=== PATIENT | female | born 1990 | race Caucasian/White ===

== ENCOUNTER 2016-07-22 00:10 | Emergency (ER) | payer OTHER ==
[~2016-07-22] VITALS: Ht 167.6 cm; Wt 51.1 kg
[2016-07-22 00:14] VITALS: TEMP 37; Ht 167.6 cm; Wt 51.1 kg
[2016-07-22 00:38] VITALS: O2SAT 100
[2016-07-22 01:00] LABS: BASO % 0.6 %; BASO ABS # 0.07 K/uL (0-0.2); COMPLETE YES; EOS % 1.8 %; HEMATOCRIT 39.7 % (37-47); IG% 0.3 %; LYMPH % 20.9 %; MEAN CELL VOLUME 89.2 fL (80-100); MEAN CORPUSCULAR HEMOGLOBIN 30.8 pg (25-34); MEAN CORPUSCULAR HGB CONC 34.5 g/dl (32-36); MEAN PLATELET VOLUME 10.3 fL (7.4-10.4); MONO % 7.9 %; NEUT % 68.5 %; PLATELET COUNT 272 K/uL (130-400); RED BLOOD COUNT 4.45 M/uL (4.2-5.4); WHITE BLOOD COUNT 11.46 K/uL (4.8-10.8)
[2016-07-22] MEDS ORDERED: ZINC1CAP PO (01:09)
[2016-07-22] MEDS ORDERED: VITACAP26 PO (01:10)
[2016-07-22 01:16] LABS: BLOOD UREA NITROGEN 5 mg/dl (7-18); CREATININE 0.56 mg/dl (0.60-1.20); GLUCOSE 120 mg/dl (70-99)
[2016-07-22 01:17] LABS: BUN/CREATININE RATIO 8.1 (10-20); CALCIUM 8.5 mg/dl (8.5-10.1); CARBON DIOXIDE 26 mmol/L (21-32); CHLORIDE 105 mmol/L (98-107); POTASSIUM 3.2 mmol/L (3.5-5.1); SODIUM 142 mmol/L (136-145)
[2016-07-22] MEDS ORDERED: POTASSIUM CHLORIDE 10 MEQ TABCR PO STA (03:27)
[2016-07-22 04:11] VITALS: BP 98/58; PULSE 87; O2SAT 96
--- NOTE | 2016-07-22 04:19 | EMERGENCY ROOM VISIT NOTE ---
History Report prepared by Jennifer: Constantino Rodriguez Under the Supervision of: Dr. Mckenzie Cruz D.O. First contact with patient: 00:21 Chief Complaint: RAPID HEART RATE Stated Complaint: LIGHTEADED,HEART PALPATATIONS,TREMORS,MILD SOB Nursing Triage Summary: Patient reports feeling "lightheaded/dizzy", nausea, palpitations, tremors & SOB. Has been having episodes with these sx for the past week- becoming more frequent over time. Tonight she reports "the palpatations were stronger & the tremors weren't going away." Also reports "difficulty concentrating". Patient appears very anxious while lying on stretcher. Noted to have flat affect & does not make eye contact. Visitor at bedside. History of Present Illness The patient is a 26 year old female who presents to the Emergency Room with complaints of worsening heart palpitations that the patient has been experiencing for the past week. The patient states that her palpitations have been worsening significantly over the past three days. She has also been experiencing dizziness, fatigue, and nausea. She has not taken any medications to remedy her symptoms. She is not on control. 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 A total of 10 systems reviewed and were otherwise negative. Past Medical & Surgical Patient reports no past medical/surgical histories Family History Heart disease Social History Smoking Status: Never Smoker Smokeless Tobacco Use: No Drug Use: none Housing Status: lives with family Occupation Status: employed Current/Historical Medications Scheduled Vitamins C & E (Vitamin C), 1 CAP PO DAILY Zinc Sulfate (Zinc Sulfate), Unknown Dose PO DIRECTED Allergies Coded Allergies: No Known Allergies (Unverified , 07/22/16) Physical Exam Vital Signs Date Time Temp Pulse Resp B/P Pulse Ox O2 Delivery O2 Flow Rate FiO2 07/22/16 04:11 87 20 98/58 96 07/22/16 02:46 95 16 100/62 Room Air 07/22/16 01:35 88 16 108/61 100 105 116/65 100 107/77 07/22/16 00:38 100 Room Air 07/22/16 00:30 97 Room Air 07/22/16 00:28 112 07/22/16 00:14 37.0 122 20 120/70 98 Room Air Physical Exam General: Patient seems slightly anxious on exam. Slightly emaciated. HEENT: Head - normocephalic and atraumatic Pupils are equal, round, and reactive to light. Extraocular eye muscles are intact, and sclera are anicteric. Nose - moist nasal mucosa without discharge. Mouth - moist buccal mucosa. Oropharynx is nonerythematous and there is no tonsillar exudate or edema noted. Neck: Supple; no JVD, nuchal rigidity, cervical lymphadenopathy, or auscultated bruits. Heart: Tachycardiac rate with normal rhythm. There is a normal S1 and S2 with no murmurs, clicks, or gallops appreciated. Lungs: Clear to auscultation bilaterally with no wheezes, rales, or rhonchi. Abdomen: Soft, completely nontender, nondistended, with good bowel sounds. There are no palpable pulsatile masses or hepatosplenomegaly. There is no guarding, rigidity, or rebound noted. Extremities: No evidence of cyanosis, clubbing, or edema. There are easily palpable peripheral pulses. Skin: Pale warm and dry with good turgor and no rashes. Medical Decision & Procedures ER Provider Diagnostic Interpretation: X-ray results as stated below per interpretation by me: CHEST X-RAY: Narrow mediastinum, no cardiomegaly, no pulmonary pathology Laboratory Results 07/22/16 00:38 Red Blood Count 4.45, Mean Corpuscular Volume 89.2, Mean Corpuscular Hemoglobin 30.8, Mean Corpuscular Hemoglobin Concent 34.5, Mean Platelet Volume 10.3, Neutrophils (%) (Auto) 68.5, Lymphocytes (%) (Auto) 20.9, Monocytes (%) (Auto) 7.9, Eosinophils (%) (Auto) 1.8, Basophils (%) (Auto) 0.6, Neutrophils # (Auto) 7.84, Lymphocytes # (Auto) 2.40, Monocytes # (Auto) 0.91, Eosinophils # (Auto) 0.21, Basophils # (Auto) 0.07 07/22/16 00:38 Test 07/22/16 00:38 07/22/16 03:11 White Blood Count 11.46 K/uL (4.8-10.8) Red Blood Count 4.45 M/uL (4.2-5.4) Hemoglobin 13.7 g/dL (12.0-16.0) Hematocrit 39.7 % (37-47) Mean Corpuscular Volume 89.2 fL (80-100) Mean Corpuscular Hemoglobin 30.8 pg (25-34) Mean Corpuscular Hemoglobin Concent 34.5 g/dl (32-36) Platelet Count 272 K/uL (130-400) Mean Platelet Volume 10.3 fL (7.4-10.4) Neutrophils (%) (Auto) 68.5 % Lymphocytes (%) (Auto) 20.9 % Monocytes (%) (Auto) 7.9 % Eosinophils (%) (Auto) 1.8 % Basophils (%) (Auto) 0.6 % Neutrophils # (Auto) 7.84 K/uL (1.4-6.5) Lymphocytes # (Auto) 2.40 K/uL (1.2-3.4) Monocytes # (Auto) 0.91 K/uL (0.11-0.59) Eosinophils # (Auto) 0.21 K/uL (0-0.5) Basophils # (Auto) 0.07 K/uL (0-0.2) RDW Standard Deviation 41.9 fL (36.4-46.3) RDW Coefficient of Variation 12.9 % (11.5-14.5) Immature Granulocyte % (Auto) 0.3 % Immature Granulocyte # (Auto) 0.03 K/uL (0.00-0.02) D-Dimer 210 ug/L FEU (0-500) Anion Gap 11.0 mmol/L (3-11) Est Creatinine Clear Calc Drug Dose 122.8 ml/min Estimated GFR () 149.1 Estimated GFR (Non- 128.7 BUN/Creatinine Ratio 8.1 (10-20) Calcium Level 8.5 mg/dl (8.5-10.1) Total Creatine Kinase 71 U/L (26-192) Creatine Kinase MB 0.7 ng/ml (0.5-3.6) Troponin I < 0.015 ng/ml (0-0.045) Thyroid Stimulating Hormone (TSH) 3.770 uIu/ml (0.300-4.500) Creatine Kinase MB Ratio (0-3.0) Laboratory results per my review. Medications Administered Medications (Trade) Dose Ordered Sig/Pavan Route Start Time Stop Time Status Last Admin Dose Admin Potassium Chloride (Klor-Con M10) 20 meq NOW STAT PO 07/22/16 03:27 07/22/16 03:28 DC 07/22/16 03:35 20 MEQ Procedure Medications Ordered: Potassium Chloride ECG Indication: chest pain, palpitations Rate (beats per minute): 113 Rhythm: sinus tachycardia Findings: no acute ischemic change, no ectopy, other (Peaked P-waves, rightward axis) ED Course 0101: This patient was evaluated and HPI was obtained by the Medical Student prior to my evaluation 0110: Past medical records reviewed. The patient was evaluated by me in room B11. A complete history and physical exam was performed. A twelve-lead EKG was performed. The patient was observing the cardiac cath lab manager and pulse oximeter. An IV lock was initiated and labs are drawn as above. Patient had a chest x- ray which showed no evidence of cardiomegaly. 0311: The patient was reevaluated at this time, he had a brief episode of chest pain which resolved spontaneously. She cardiac enzymes performed which were negative. 0327: Ordered Potassium Chloride 20 MEQ PO. 0330: I reevaluated the patient at this time, she is feeling better. I went over all of her laboratory results with her and her mother. 0401: Upon reevaluation, the patient is resting comfortably. I discussed findings and results with the patient and discussed her cardiac enzyme labs. She verbalized agreement of the treatment plan. The patient was discharged home. The patient's heart rate had normalized on its own. She is symptom free at the time of discharge. Medical Decision The patient is a 26 year old female who presents to the emergency department with heart palpitations. Differential diagnoses include; pulmonary embolism, electrolyte imbalance, anxiety, dehydration, cardiomyopathy, cardiac dysrhythmia, and thyroid dysfunction. Laboratory results were reviewed and show; a white count of 11.3, stable hemoglobin and hematocrit, potassium of 3.2, glucose of 120, normal renal function, D-dimer of 210, TSH of 3.7, and negative cardiac enzymes. Patient presents with intermittent episodes of palpitations that have become more constant. EKG showed some evidence of a peaked P wave. She was not hypoxic had no respiratory complaints and had a negative d-dimer. Patient had one single episode of chest discomfort which lasted for only a couple of seconds. Cardiac enzymes were negative. A twelve-lead EKG showed no signs of ischemia. Thyroid studies were normal. The patient's potassium was slightly low. I have asked her to increase her potassium intake. She is a vegetarian and has concerns about her nutrition. I' ve asked her to follow-up with her PCP. Impression Primary Impression: Palpitations Additional Impression: Hypokalemia Scribe Attestation The scribe's documentation has been prepared under my direction and personally reviewed by me in its entirety. I confirm that the note above accurately reflects all work, treatment, procedures, and medical decision making performed by me. Departure Information Dispostion Home / Self-Care Referrals Gerardo Martínez M.D. (PCP) Forms HOME CARE DOCUMENTATION FORM, IMPORTANT VISIT INFORMATION, WORK / SCHOOL INSTRUCTIONS Patient Instructions A Signature Page, My [facility] Additional Instructions Rest. Take plenty of clear liquids Take foods high in potassium. Follow up with your PCP if symptoms persist Return to the ER if you develop worsening symptoms
--- NOTE | 2016-07-22 06:48 | DIAGNOSTIC IMAGING REPORT ---
CHEST 2 VIEWS ROUTINE CLINICAL HISTORY: Nausea and shortness of breath. Evaluate for cardiomyopathy. COMPARISON STUDY: No previous studies for comparison. FINDINGS: Lung volumes are normal. Lungs are clear. There is no pneumothorax or pleural effusion. Cardiac size is normal. Mediastinal contours are normal. There is no evidence of pulmonary edema. IMPRESSION: No acute cardiopulmonary findings. Normal cardiac size. Electronically signed by: Sami Mathew M.D. 07/22/2016 6:46 AM Dictated Date/Time: 07/22/2016 6:46 AM
== END 2016-07-22 04:13 | disposition home or self-care (01) ==
LOC: C.EDB 00:12
DX: R00.2 Palpitations (principal); E87.6 Hypokalemia; R42 Dizziness and giddiness